=== PATIENT | female | born 1995 | race Caucasian/White ===

== ENCOUNTER 2024-10-19 15:52 | Emergency (ER) | payer OTHER, SELFPAY ==
[2024-10-19 16:04] VITALS: BP 113/72; PULSE 87; RESP 18; TEMP 36.7; O2SAT 100; BMI 35.9
--- NOTE | 2024-10-19 16:15 | EKG_ITS ---
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
--- NOTE | 2024-10-19 16:16 | PD.EDDIZZY ---
ED Dizzyness RME/HPI General Chief Complaint: Dizziness Stated Complaint: Dizzy since last night Time Seen by Provider: 10/19/24 16:16 Source: patient Arrival date/time: 10/19/24 15:52 29-year-old female with no known medical history presents to the emergency room with a chief complaint of dizziness that began last night. Patient states the dizziness is worse with sudden positional changes. Patient denies any nausea or vomiting. Mode of arrival: ambulatory Limitations: no limitations Related Data Allergies Allergy/AdvReac Type Severity Reaction Status Date / Time No Known Allergies Allergy Verified 10/19/24 15:56 ED Exam General Limitations: Present no limitations Course Orders Category Date Time Status EKG (ED ONLY) *Do not use* NOW Care 10/19/24 16:15 Active EKG (ED Only) Stat Exams 10/19/24 16:15 Ordered CBC Stat Lab 10/19/24 16:15 Ordered Comprehensive Metabolic Panel Stat Lab 10/19/24 16:15 Ordered Troponin I Stat Lab 10/19/24 16:15 Ordered Urinalysis Stat Lab 10/19/24 16:15 Ordered Urine Culture Stat Lab 10/19/24 16:15 Ordered Meclizine HCl [Antivert] Med 10/19/24 16:15 Discontinued 25 mg PO X1 ONE Vital Signs Vital signs: Vital Signs Temperature 98.1 F 10/19/24 16:04 Pulse Rate 87 10/19/24 16:04 Respiratory Rate 18 10/19/24 16:04 Blood Pressure 113/72 10/19/24 16:04 Pulse Oximetry (%) 100 10/19/24 16:04 Oxygen Delivery Method Room Air 10/19/24 16:04 Dizziness Medications / Prescriptions Medication administrations:: Medication Administration History Discontinued Medications Meclizine HCl (Meclizine Hcl 25 Mg Tablet) 25 mg PO X1 ONE Stop: 10/19/24 16:16 Discharge Plan Patient/Caregiver Discharge Instructions Print Language: Upper Sorbian
[2024-10-19] MEDS: MECLIZINE HCL 25 MG TABLET PO (16:41)
[2024-10-19 17:08] LABS: Collection Type, Urine Clean Catch
[2024-10-19 17:12] LABS: Basophils % (Auto) 0 % (0-2.5); Eosinophils # (Auto) 0.1 Thou/mm3 (0.0-0.5); Eosinophils % (Auto) 1 % (0-10); Hematocrit 42.3 % (36.0-46.0); Hemoglobin 14.4 g/dL (12.0-16.0); Immature Granulocytes % (Auto) 0 % (0-0); Immature Granulocytes Auto 0.02 Thou/mm3 (0.00-0.00); Lymphocytes # (Auto) 2.6 Thou/mm3 (1.0-4.8); Lymphocytes % (Auto) 41 % (10-50); Mean Corpuscular Hemoglobin 29.6 pg (25.0-35.0); Mean Corpuscular Volume 87 fL (80-100); Monocytes # (Auto) 0.5 Thou/mm3 (0.0-0.8); Monocytes % (Auto) 8 % (0-12); Neutrophils # (Auto) 3.1 Thou/mm3 (1.8-7.7); Neutrophils % (Auto) 49 % (37-80); Nucleated Red Blood Cell % 0 /100 WBC (0); Platelet Count 269 Thou/mm3 (140-440); RDW Standard Deviation 39.2 fL (36.4-46.3); Red Blood Count 4.87 Miln/mm3 (4.00-5.20); White Blood Count 6.4 Thou/mm3 (3.6-11.0)
[2024-10-19 17:17] LABS: Bilirubin,Urine Negative (Negative); Blood,Urine Negative (Negative); Clarity,Urine Clear (Clear/Hazy); Color,Urine Lt-Yellow (Lt Yel-Yel); Glucose, Urine Negative (Negative); Ketones,Urine 2+ (Negative); Leukocyte Esterase,Urine Negative (Negative); Nitrite,Urine Negative (Negative); PH,Urine 6.5 (5.0-7.0); Protein,Urine Negative (Neg - Trace); RBC,Urine 1 /hpf (0-3); Specific Gravity,Urine 1.023 (1.001-1.035); Squamous Epithelial Cell,Urine 19 /hpf (0-5); Urobilinogen,Urine Negative mg/dL (0.0-1.0); WBC,Urine 1 /hpf (0-5)
--- NOTE | 2024-10-19 17:45 | EDRME_ITS ---
Rapid Medical Screening Exam [facility] Arrival date/time: 10/19/24 15:52 29-year-old female with no known medical history presents to the emergency room with a chief complaint of dizziness that began last night. Patient states the dizziness is worse with sudden positional changes. Patient denies any nausea or vomiting. I have greeted and performed a focused initial assessment of this patient. A comprehensive ED assessment and evaluation of the patient, analysis of all test results, and completion of the medical decision making process will be conducted by additional ED providers. Chief Complaint: Dizziness Time Seen by Provider: 10/19/24 16:16 Vital signs: Vital Signs Temperature 98.1 F 10/19/24 16:04 Pulse Rate 87 10/19/24 16:04 Respiratory Rate 18 10/19/24 16:04 Blood Pressure 113/72 10/19/24 16:04 Pulse Oximetry (%) 100 10/19/24 16:04 Oxygen Delivery Method Room Air 10/19/24 16:04 Vital signs reviewed by provider: Yes
[2024-10-19 18:06] LABS: Alanine Aminotransferase 36 U/L (10-49); Albumin, Serum 4.6 gm/dL (3.5-5.0); Albumin/Globulin Ratio 1.7 (1.2-2.2); Alkaline Phosphatase 71 U/L (46-116); Anion Gap 7 (7-16); Aspartate Amino Transferase 23 U/L (0-34); BUN/Creatinine Ratio 15 Ratio (12-20); Bilirubin,Total 0.7 mg/dL (0.3-1.2); Blood Urea Nitrogen 12 mg/dL (9-23); Calcium 9.5 mg/dL (8.3-10.6); Calcium (Corrected) 9.5 mg/dL (8.5-10.1); Carbon Dioxide 26.1 mMol/L (20.0-31.0); Chloride 106 mMol/L (98-107); Creatinine (Component) 0.8 mg/dL (0.6-1.3); Estimated Creatinine Clearance 85.7 mL/min (>60); Globulin 2.7 gm/dL (2.3-3.5); Glucose 92 mg/dL (74-106); Osmolality,Calculated 277 (275-295); Potassium 3.9 mMol/L (3.4-5.1); Sodium 139 mMol/L (136-145); Total Protein 7.3 gm/dL (5.7-8.2); Troponin I < 0.002 ng/mL (0.0-0.045); eGFR > 60 See Note
== END 2024-10-19 18:45 | disposition left against medical advice (07) ==
PROVIDERS: Nurse Practitioner Family; Emergency Provider Emergency Medicine
DX: R42 Dizziness and giddiness (principal); Z53.29 Procedure and treatment not carried out because of patient's decision for other reasons
CPT/HCPCS: 36415; 80053; 81001; 84484; 85025; 87086; 99281; A9270